=== PATIENT | male | born 1945 | race Caucasian/White ===

== ENCOUNTER 2021-09-10 12:29 | Inpatient (IN) | payer MEDICARE, OTHER ==
[~2021-09-10 12:29] MED LIST: Heparin 1,000 UNITS/ML VIAL ONE
[2021-09-10] MEDS ORDERED: Cefepime 2 GM VIAL ONE (12:50)
[2021-09-10] MEDS ORDERED: Morphine 4 MG/ML VIAL ONE ×2 (12:58→17:14)
[2021-09-10 13:08] LABS: #Eosinphils 0.1 thou/uL (0.0-0.7); #Lymphocytes 0.7 thou/uL (1.20-3.40); #Neutrophils 8.9 thou/uL (1.40-6.50); %Basophils 0.3 % (0.0-1.0); %Eosinophils 0.5 % (0.0-10.0); %Lymphocytes 6.2 % (21.0-51.0); %Monocytes 9.1 % (0.0-10.0); %Neutrophils 83.8 % (42.0-75.0); Hemoglobin 9.9 g/dL (14.0-18.0); Mean Corpuscular HGB CONC 32.5 g/dL (32.0-36.0); Mean Corpuscular Hemoglobin 26.7 pg (27.0-31.0); Mean Corpuscular Volume 82.3 fL (78.0-98.0); Mean Platelet Volume 7.2 fL (7.4-10.4); Platelet Count 276 thou/uL (130-400); RBC Distribution Width 13.4 % (11.5-14.5); Red Blood Cell (RBC) Count 3.71 mill/uL (4.70-6.10); White Blood Cell (WBC) Count 10.6 thou/uL (4.8-10.8)
[2021-09-10] MEDS ORDERED: Sodium Chloride 0.9% 1,000 ML IV SCH (13:15)
[2021-09-10 13:38] LABS: ALT (SGPT) 16 U/L (8-55); AST (SGOT) 16 U/L (5-34); Albumin 3.1 g/dL (3.4-4.8); Alkaline Phosphatase 45 U/L (40-110); Anion Gap 11 mmol/L (10-20); BUN (Urea Nitrogen) 14 mg/dL (8.4-25.7); Bilirubin, Total 0.5 mg/dL (0.2-1.2); Calc. Creatinine Clearance 0 mL/min (70-130); Calcium 9.2 mg/dL (7.8-10.44); Carbon Dioxide 26 mmol/L (23-31); Chloride 101 mmol/L (98-107); Globulin 3.9 g/dL (2.4-3.5); Glucose 129 mg/dL (83-110); Potassium 3.8 mmol/L (3.5-5.1); Sodium 134 mmol/L (136-145)
[2021-09-10 13:39] LABS: INR-International Normal Ratio 1.1; PTT 43.5 sec (22.9-36.1); Prothrombin Time 13.9 sec (12.0-14.7)
[2021-09-10] MEDS ORDERED: VANCOMYCIN 1.75 GM/350 ML BAG 1.75 GM in Premix Bag 1 BAG IVPB SCH (14:00)
[2021-09-10 15:36] LABS: Bilirubin Negative (Negative); Blood, Urine Negative (Negative); Clarity Clear (Clear); Glucose, Urine (Dipstick) Normal (Negative); Ketone, Urine Negative (Negative); Leukocyte Negative Leu/uL (Negative); Nitrite Negative (Negative); Protein, Urine (Dipstick) Negative (Neg-Trace); Specific Gravity, Urine 1.012 (1.002-1.036); Urobilinogen Normal mg/dL (Less than 2); pH, Urine 5.5 (5.0-9.0)
[2021-09-10] MEDS ORDERED: Ondansetron ODT 4 MG TAB PO PRN (17:49)
[2021-09-10] MEDS ORDERED: Acetaminophen 325 MG TAB PO PRN (17:49)
[2021-09-10] MEDS ORDERED: Ondansetron PF 4 MG/2 ML Vial IVP PRN (17:49)
[2021-09-10] MEDS ORDERED: Morphine 4 MG/ML VIAL SLOW IVP PRN (17:50)
[2021-09-10] MEDS ORDERED: hydrALAZINE 20 MG/ML VIAL SLOW IVP PRN (17:51)
[2021-09-10] MEDS ORDERED: Electrolyte Replacement Protocol 1 EACH FS SCH (18:00)
[2021-09-10] MEDS ORDERED: Vancomycin 1 GM in Premix Bag 1 BAG IVPB SCH (18:00)
[2021-09-10 19:22] VITALS: BMI 21.7
[2021-09-11] MEDS: Zolpidem Tartrate 5 MG TAB PO PRN ×2 (00:26→21:29)
[2021-09-11] MEDS: Cefepime 2 GM in Sodium Chloride 0.9% 100 ML IVPB SCH ×3 (00:26→23:15)
[2021-09-11] MEDS: Vancomycin HCl 750 MG in Sodium Chloride 0.9% 250 ML 250 ML IVPB SCH ×2 (03:00→16:26)
[2021-09-11] MEDS: FLUoxetine HCl 20 MG CAP PO SCH (09:13)
[2021-09-11 10:30] LABS: #Eosinphils 0.1 thou/uL (0.0-0.7); #Lymphocytes 0.7 thou/uL (1.20-3.40); #Monocytes 1.1 thou/uL (0.11-0.59); #Neutrophils 7.5 thou/uL (1.40-6.50); %Basophils 0.3 % (0.0-1.0); %Eosinophils 1.1 % (0.0-10.0); %Lymphocytes 7.7 % (21.0-51.0); %Monocytes 11.2 % (0.0-10.0); %Neutrophils 79.7 % (42.0-75.0); Hemoglobin 8.4 g/dL (14.0-18.0); Mean Corpuscular HGB CONC 31.5 g/dL (32.0-36.0); Mean Corpuscular Hemoglobin 26.3 pg (27.0-31.0); Mean Corpuscular Volume 83.5 fL (78.0-98.0); Mean Platelet Volume 6.8 fL (7.4-10.4); Platelet Count 277 thou/uL (130-400); RBC Distribution Width 13.3 % (11.5-14.5); Red Blood Cell (RBC) Count 3.18 mill/uL (4.70-6.10); White Blood Cell (WBC) Count 9.4 thou/uL (4.8-10.8)
[2021-09-11 10:49] LABS: Anion Gap 11 mmol/L (10-20); BUN (Urea Nitrogen) 9 mg/dL (8.4-25.7); Calc. Creatinine Clearance 89 mL/min (70-130); Calcium 8.5 mg/dL (7.8-10.44); Carbon Dioxide 22 mmol/L (23-31); Chloride 106 mmol/L (98-107); Glucose 102 mg/dL (83-110); Magnesium 1.7 mg/dL (1.6-2.6); Sodium 135 mmol/L (136-145)
[2021-09-11] MEDS: traMADol HCl 50 MG TAB PO PRN ×3 (11:47→23:15)
[2021-09-11] MEDS ORDERED: Magnesium 2 GM/50 ML 2 GM in Premix Bag 1 BAG IVPB SCH (13:15)
[2021-09-11 17:10] LABS: SARS-CoV-2 PCR by NAA Not Detected (NotDetected)
[2021-09-12 02:40] LABS: #Eosinphils 0.1 thou/uL (0.0-0.7); #Lymphocytes 0.9 thou/uL (1.20-3.40); #Neutrophils 6.9 thou/uL (1.40-6.50); %Basophils 0.3 % (0.0-1.0); %Eosinophils 1.3 % (0.0-10.0); %Lymphocytes 9.6 % (21.0-51.0); %Neutrophils 77.8 % (42.0-75.0); Hemoglobin 8.9 g/dL (14.0-18.0); Mean Corpuscular Hemoglobin 26.5 pg (27.0-31.0); Mean Corpuscular Volume 82.9 fL (78.0-98.0); Mean Platelet Volume 6.9 fL (7.4-10.4); Platelet Count 303 thou/uL (130-400); RBC Distribution Width 13.4 % (11.5-14.5); Red Blood Cell (RBC) Count 3.37 mill/uL (4.70-6.10); White Blood Cell (WBC) Count 8.8 thou/uL (4.8-10.8)
[2021-09-12 02:56] LABS: Vancomycin, Trough 9.6 ug/mL
[2021-09-12 03:06] LABS: Anion Gap 14 mmol/L (10-20); BUN (Urea Nitrogen) 9 mg/dL (8.4-25.7); Calc. Creatinine Clearance 85 mL/min (70-130); Calcium 8.4 mg/dL (7.8-10.44); Carbon Dioxide 21 mmol/L (23-31); Chloride 103 mmol/L (98-107); Glucose 111 mg/dL (83-110); Sodium 134 mmol/L (136-145)
[2021-09-12] MEDS: Vancomycin HCl 750 MG in Sodium Chloride 0.9% 250 ML 250 ML IVPB SCH (03:12)
[2021-09-12] MEDS: VANCOMYCIN 1.25 GM/250 ML BAG 1.25 GM in Premix Bag 1 BAG IVPB SCH ×2 (03:44→15:55)
[2021-09-12] MEDS: FLUoxetine HCl 20 MG CAP PO SCH (08:03)
[2021-09-12] MEDS: traMADol HCl 50 MG TAB PO PRN (09:48)
[2021-09-12] MEDS: cefTRIAXone\\ROCEPHIN 2 GM in Sodium Chloride 0.9% 100 ML IVPB SCH (12:00)
[2021-09-12] MEDS ORDERED: Morphine 4 MG/ML VIAL SLOW IVP PRN (13:17)
[2021-09-12] MEDS: Acetaminophen 500 MG TAB PO SCH ×2 (13:55→20:40)
[2021-09-12] MEDS: Lidocaine 5% Patch TD SCH (15:54)
[2021-09-12] MEDS: Ketorolac Tromethamine 30 MG/ML VIAL IVP PRN ×2 (16:24→20:40)
[2021-09-12] MEDS: Mirtazapine 15 MG TAB PO SCH (20:40)
[2021-09-13] MEDS: Acetaminophen 500 MG TAB PO SCH ×4 (01:43→20:31)
[2021-09-13] MEDS: Transdermal Patch Removal TOP SCH (02:15)
[2021-09-13] MEDS: VANCOMYCIN 1.25 GM/250 ML BAG 1.25 GM in Premix Bag 1 BAG IVPB SCH (04:35)
[2021-09-13 07:44] LABS: #Eosinphils 0.2 thou/uL (0.0-0.7); #Lymphocytes 0.7 thou/uL (1.20-3.40); #Monocytes 0.8 thou/uL (0.11-0.59); #Neutrophils 8.6 thou/uL (1.40-6.50); %Basophils 0.2 % (0.0-1.0); %Eosinophils 2.3 % (0.0-10.0); %Lymphocytes 6.9 % (21.0-51.0); %Monocytes 7.5 % (0.0-10.0); %Neutrophils 83.2 % (42.0-75.0); Hemoglobin 8.9 g/dL (14.0-18.0); Mean Corpuscular HGB CONC 32.3 g/dL (32.0-36.0); Mean Corpuscular Hemoglobin 26.9 pg (27.0-31.0); Mean Corpuscular Volume 83.1 fL (78.0-98.0); Platelet Count 308 thou/uL (130-400); RBC Distribution Width 13.5 % (11.5-14.5); Red Blood Cell (RBC) Count 3.32 mill/uL (4.70-6.10); White Blood Cell (WBC) Count 10.4 thou/uL (4.8-10.8)
[2021-09-13 08:08] LABS: Anion Gap 13 mmol/L (10-20); BUN (Urea Nitrogen) 13 mg/dL (8.4-25.7); Calc. Creatinine Clearance 84 mL/min (70-130); Calcium 8.8 mg/dL (7.8-10.44); Carbon Dioxide 23 mmol/L (23-31); Chloride 108 mmol/L (98-107); Glucose 100 mg/dL (83-110); Iron 27 ug/dL (65-175); Iron Binding Capacity, Total 171 mcg/dL (261-462); Potassium 3.7 mmol/L (3.5-5.1); Sodium 140 mmol/L (136-145)
[2021-09-13] MEDS: FLUoxetine HCl 20 MG CAP PO SCH (08:32)
[2021-09-13] MEDS: Ketorolac Tromethamine 30 MG/ML VIAL IVP PRN ×2 (11:10→20:32)
[2021-09-13] MEDS: cefTRIAXone\\ROCEPHIN 2 GM in Sodium Chloride 0.9% 100 ML IVPB SCH (11:10)
[2021-09-13] MEDS: Lidocaine 5% Patch TD SCH (15:37)
[2021-09-13] MEDS: Mirtazapine 15 MG TAB PO SCH (20:31)
[2021-09-14] MEDS: Acetaminophen 500 MG TAB PO SCH ×4 (02:17→21:12)
[2021-09-14] MEDS: Transdermal Patch Removal TOP SCH (02:42)
[2021-09-14] MEDS: Ferrous Sulfate 325 MG TAB PO SCH (09:00)
[2021-09-14] MEDS: FLUoxetine HCl 20 MG CAP PO SCH (09:02)
[2021-09-14] MEDS: Ketorolac Tromethamine 30 MG/ML VIAL IVP PRN ×2 (10:19→17:49)
[2021-09-14] MEDS: cefTRIAXone\\ROCEPHIN 2 GM in Sodium Chloride 0.9% 100 ML IVPB SCH (12:31)
[2021-09-14] MEDS: Lidocaine 5% Patch TD SCH (14:50)
[2021-09-14] MEDS: Mirtazapine 15 MG TAB PO SCH (21:12)
[2021-09-14] MEDS: Zolpidem Tartrate 5 MG TAB PO PRN (21:12)
[2021-09-15] MEDS: Acetaminophen 500 MG TAB PO SCH ×3 (01:51→14:05)
[2021-09-15] MEDS: Transdermal Patch Removal TOP SCH (01:55)
[2021-09-15] MEDS: Ketorolac Tromethamine 30 MG/ML VIAL IVP PRN ×2 (05:01→11:23)
[2021-09-15 08:33] LABS: ALT (SGPT) 21 U/L (8-55); AST (SGOT) 21 U/L (5-34); Albumin 2.7 g/dL (3.4-4.8); Alkaline Phosphatase 39 U/L (40-110); Anion Gap 10 mmol/L (10-20); BUN (Urea Nitrogen) 12 mg/dL (8.4-25.7); Bilirubin, Total 0.4 mg/dL (0.2-1.2); Calc. Creatinine Clearance 75 mL/min (70-130); Calcium 8.9 mg/dL (7.8-10.44); Carbon Dioxide 25 mmol/L (23-31); Chloride 110 mmol/L (98-107); Globulin 3.3 g/dL (2.4-3.5); Glucose 111 mg/dL (83-110); Potassium 4.1 mmol/L (3.5-5.1); Sodium 141 mmol/L (136-145)
[2021-09-15 08:38] LABS: #Eosinphils 0.2 thou/uL (0.0-0.7); #Lymphocytes 0.8 thou/uL (1.20-3.40); #Monocytes 0.8 thou/uL (0.11-0.59); #Neutrophils 8.2 thou/uL (1.40-6.50); %Basophils 0.3 % (0.0-1.0); %Eosinophils 1.7 % (0.0-10.0); %Lymphocytes 8.1 % (21.0-51.0); %Monocytes 7.6 % (0.0-10.0); %Neutrophils 82.3 % (42.0-75.0); Hemoglobin 8.7 g/dL (14.0-18.0); Mean Corpuscular HGB CONC 31.2 g/dL (32.0-36.0); Mean Corpuscular Hemoglobin 26.1 pg (27.0-31.0); Mean Corpuscular Volume 83.6 fL (78.0-98.0); Mean Platelet Volume 6.9 fL (7.4-10.4); Platelet Count 344 thou/uL (130-400); RBC Distribution Width 13.8 % (11.5-14.5); Red Blood Cell (RBC) Count 3.32 mill/uL (4.70-6.10); White Blood Cell (WBC) Count 9.9 thou/uL (4.8-10.8)
[2021-09-15] MEDS: Ferrous Sulfate 325 MG TAB PO SCH (08:40)
[2021-09-15] MEDS: FLUoxetine HCl 20 MG CAP PO SCH (08:40)
[2021-09-15 09:06] VITALS: BP 149/81; TEMP 97.7
[2021-09-15] MEDS: cefTRIAXone\\ROCEPHIN 2 GM in Sodium Chloride 0.9% 100 ML IVPB SCH (11:20)
[2021-09-15] MEDS: Lidocaine 5% Patch TD SCH (14:04)
== END 2021-09-15 17:39 | disposition home or self-care (01) | DRG 539 ==
LOC: ERS 12:29 → ERHOLD 14:53 → T4-A 18:52
PROVIDERS: ADMIT Family Medicine; ATTEND Family Medicine
PROC: 02HV33Z Insertion of Infusion Device into Superior Vena Cava, Percutaneous Approach (ICD-10-PCS; principal; 2021-09-11)
PROC: B5181ZA Fluoroscopy of Superior Vena Cava using Low Osmolar Contrast, Guidance (ICD-10-PCS; 2021-09-11)
PROC: B548ZZA Ultrasonography of Superior Vena Cava, Guidance (ICD-10-PCS; 2021-09-11)
DX: M46.26 Osteomyelitis of vertebra, lumbar region (principal); I33.0 Acute and subacute infective endocarditis; R78.81 Bacteremia; E87.1 Hypo-osmolality and hyponatremia; M46.56 Other infective spondylopathies, lumbar region; B95.4 Other streptococcus as the cause of diseases classified elsewhere; D50.9 Iron deficiency anemia, unspecified; F32.A Depression, unspecified; G47.00 Insomnia, unspecified; G89.29 Other chronic pain; E78.5 Hyperlipidemia, unspecified; M48.061 Spinal stenosis, lumbar region without neurogenic claudication; M46.36 Infection of intervertebral disc (pyogenic), lumbar region; I08.1 Rheumatic disorders of both mitral and tricuspid valves; Z88.8 Allergy status to other drugs, medicaments and biological substances; Z90.89 Acquired absence of other organs; Z79.899 Other long term (current) drug therapy
CPT/HCPCS: 36415; 36569; 80048; 80053; 80202; 81003; 82607; 82746; 83540; 83550; 83605; 83735; 85025; 85610; 85730; 86140; 87040; 87077; 87086; 87149; 87186; 93306; 94760; C1751; J0692; J0696; J1644; J1885; J2270; J3370; J3475; J3490; J7050; U0003; U0005

== ENCOUNTER 2021-09-30 11:15 | Day surgery (SDC) | payer MEDICARE ==
[2021-09-23 12:15] VITALS: BMI 20.3
[2021-09-30] MEDS ORDERED: PROPOFOL 200 MG/20 ML VIAL ONE (14:05)
== END 2021-09-30 15:05 | disposition home or self-care (01) ==
LOC: SDC 11:15
PROVIDERS: ATTEND Internal Medicine Cardiovascular Disease
PROC: B24BZZ4 Ultrasonography of Heart with Aorta, Transesophageal (ICD-10-PCS; principal; 2021-09-30)
DX: I08.1 Rheumatic disorders of both mitral and tricuspid valves (principal); I70.0 Atherosclerosis of aorta; E78.5 Hyperlipidemia, unspecified; E78.00 Pure hypercholesterolemia, unspecified; G89.29 Other chronic pain; M54.50 Low back pain, unspecified; Z87.891 Personal history of nicotine dependence; Z79.899 Other long term (current) drug therapy; Z88.5 Allergy status to narcotic agent
CPT/HCPCS: 93312

== ENCOUNTER 2022-05-01 12:17 | Outpatient (CLI) | payer OTHER | END 2022-05-01 12:18 | disposition home or self-care (01) | LOC: LABBT 12:17 | PROVIDERS: ATTEND Thoracic Surgery (Cardiothoracic Vascular Surgery) | DX: Z01.812 Encounter for preprocedural laboratory examination (principal); I38 Endocarditis, valve unspecified; Z20.822 Contact with and (suspected) exposure to COVID-19 | CPT/HCPCS: 71046; 80048; 85027; 87811; 93005; 93010 ==

== ENCOUNTER 2022-05-01 13:45 | Inpatient (IN) | payer OTHER ==
[2022-05-01 11:52] VITALS: BMI 20.9
[2022-05-01 13:58] LABS: Hemoglobin 12.5 g/dL (13.5-17.5); Mean Corpuscular HGB CONC 32.7 g/dL (32.0-36.0); Mean Corpuscular Hemoglobin 26.3 pg (27.0-33.0); Mean Corpuscular Volume 80.3 fl (81.2-95.1); Mean Platelet Volume 10.6 fl (7.4-10.4); Platelet Count 240 10x3/uL (150-450); RBC Distribution Width 14.6 % (11.5-14.5); Red Blood Cell (RBC) Count 4.76 10x6/uL (4.32-5.72)
[2022-05-01 14:21] LABS: Anion Gap 14 mmol/L (10-20); BUN (Urea Nitrogen) 16 mg/dL (8.4-25.7); Calc. Creatinine Clearance 0 mL/min (70-130); Calcium 9.8 mg/dL (7.8-10.44); Carbon Dioxide 26 mmol/L (23-31); Chloride 101 mmol/L (98-107); Estimated GFR 90; Glucose 129 mg/dL (83-110); Potassium 4.5 mmol/L (3.5-5.1); Sodium 136 mmol/L (136-145)
[2022-05-06] MEDS ORDERED: fentaNYL Citrate/PF 100 MCG/2 ML SYRINGE ONE ×2 (06:20)
[2022-05-06] MEDS ORDERED: Dexmedetomidine 200 MCG/2 ML VIAL ONE (06:21)
[2022-05-06] MEDS ORDERED: Insulin Regular 300 UNITS/3 ML VIAL ONE ×2 (06:21→09:13)
[2022-05-06] MEDS ORDERED: SUGAMMADEX SODIUM 200 MG/2 ML VIAL ONE (06:21)
[2022-05-06] MEDS ORDERED: niCARdipine 25 MG/10 ML VIAL ONE (06:21)
[2022-05-06] MEDS ORDERED: Aminocaproic Acid 5 GM/20 ML VIAL ONE ×2 (06:21→07:39)
[2022-05-06] MEDS ORDERED: Rocuronium Bromide 50 MG/5 ML VIAL ONE (06:21)
[2022-05-06] MEDS ORDERED: Midazolam HCl 5 mg/5 ml Vial ONE (06:21)
[2022-05-06] MEDS ORDERED: EPINEPHrine 1 MG/ML AMP ONE (06:30)
[2022-05-06] MEDS ORDERED: Bupivacaine PF 0.5% 30 ML VIAL ONE (06:30)
[2022-05-06] MEDS ORDERED: Dexamethasone 4 mg/ml Vial ONE (06:30)
[2022-05-06] MEDS ORDERED: Albumin 5% 500 ML ONE (06:30)
[2022-05-06] MEDS ORDERED: Bupivacaine HCl 0.5%/Epinephrine 1:200,000/PF 30 ml Vial ONE (06:31)
[2022-05-06] MEDS ORDERED: Vancomycin 1 GM/200 ML BAG ONE (06:39)
[2022-05-06] MEDS ORDERED: Heparin 10,000 UNITS/1 ML VIAL 30,000 UNITS in Sodium Chloride 0.9% 1,000 ML FS SCH (06:45)
[2022-05-06] MEDS ORDERED: Norepinephrine 4 MG/4 ML VIAL ONE (06:48)
[2022-05-06] MEDS ORDERED: CEFAZOLIN 2 GM VIAL ONE (07:21)
[2022-05-06] MEDS ORDERED: Sodium Chloride 0.9% 100 ML ONE (07:22)
[2022-05-06] MEDS ORDERED: Rocuronium Bromide 10 MG/ML (10ML VIAL) ONE (07:39)
[2022-05-06] MEDS ORDERED: Heparin 30,000 units/30 ml VIAL ONE (07:39)
[2022-05-06] MEDS ORDERED: Magnesium Sulfate 1 GM/2 ML VIAL ONE (07:39)
[2022-05-06] MEDS ORDERED: PROPOFOL 200 MG/20 ML VIAL ONE (07:39)
[2022-05-06] MEDS ORDERED: Calcium Chloride 1 GM/10 ML Abboject SYRINGE ONE (07:39)
[2022-05-06] MEDS ORDERED: Lidocaine 2% PF 100 mg/5 ml Syringe ONE (07:39)
[2022-05-06] MEDS ORDERED: Mannitol 12.5 GM/50 ML ONE (07:39)
[2022-05-06] MEDS ORDERED: Sodium Bicarb 50 MEQ/50 ML Abboject 8.4% SYRINGE ONE (07:39)
[2022-05-06] MEDS ORDERED: Lidocaine 1% MPF 2 ML VIAL ONE (07:39)
[2022-05-06] MEDS ORDERED: Protamine Sulfate 250 MG/25 ML VIAL ONE (07:39)
[2022-05-06] MEDS ORDERED: Thrombin 5000 UNITS/5 ML VIAL ONE (07:39)
[2022-05-06] MEDS ORDERED: PHENYLEPHRINE-NS 100 MCG/ML 10 ML SYRINGE ONE (09:13)
[2022-05-06] MEDS ORDERED: Albumin 5% 250 ML ONE ×2 (11:31→11:43)
[2022-05-06] MEDS ORDERED: Acetaminophen 325 MG TAB PO PRN (11:34)
[2022-05-06] MEDS ORDERED: Bisacodyl 10 MG SUPP PR PRN (11:34)
[2022-05-06] MEDS ORDERED: Guaifenesin DM 100-10/5 ML UDCUP PO PRN (11:34)
[2022-05-06] MEDS ORDERED: D5 1/2 NS w/20 mEq KCL 1,000 ML IV SCH (11:34)
[2022-05-06] MEDS ORDERED: Hetastarch 6% 500 ML 500 ML IVPB PRN (11:34)
[2022-05-06] MEDS ORDERED: NOREPINEPHRINE 8 MG/250 ML-D5W 250 ML IVPB PRN (11:34)
[2022-05-06] MEDS ORDERED: Morphine 2 MG/ML VIAL SLOW IVP PRN (11:34)
[2022-05-06] MEDS ORDERED: Mag-Al 1200 mg/1200 mg/30 ML UDCUP PO PRN (11:34)
[2022-05-06] MEDS ORDERED: Promethazine HCl 25 MG/ML VIAL IM PRN (11:34)
[2022-05-06] MEDS ORDERED: Fentanyl 100 MCG/2 ML VIAL SLOW IVP PRN (11:34)
[2022-05-06] MEDS ORDERED: Nitroglycerin 50 MG/250 ML BOT 250 ML IVPB PRN (11:34)
[2022-05-06] MEDS ORDERED: Magnesium 5 GM/10 ML Abboject SYRINGE ONE (11:44)
[2022-05-06 11:50] LABS: #Eosinphils 0.2 thou/uL (0.0-0.7); #Lymphocytes 0.7 thou/uL (1.20-3.40); #Monocytes 1.4 thou/uL (0.11-0.59); #Neutrophils 15.4 thou/uL (1.40-6.50); %Basophils 0.3 % (0.0-1.0); %Eosinophils 0.9 % (0.0-10.0); %Monocytes 7.7 % (0.0-10.0); %Neutrophils 87.1 % (42.0-75.0); Hemoglobin 10.5 g/dL (14.0-18.0); Mean Corpuscular HGB CONC 31.7 g/dL (32.0-36.0); Mean Corpuscular Hemoglobin 26.5 pg (27.0-31.0); Mean Corpuscular Volume 83.6 fL (78.0-98.0); Platelet Count 130 thou/uL (130-400); RBC Distribution Width 13.9 % (11.5-14.5); Red Blood Cell (RBC) Count 3.98 mill/uL (4.70-6.10); White Blood Cell (WBC) Count 17.7 thou/uL (4.8-10.8)
[2022-05-06 12:02] LABS: INR-International Normal Ratio 1.3; PTT 36.1 sec (22.9-36.1); Prothrombin Time 16.8 sec (12.0-14.7)
[2022-05-06 12:12] LABS: Anion Gap 11 mmol/L (10-20); BUN (Urea Nitrogen) 12 mg/dL (8.4-25.7); Calc. Creatinine Clearance 79 mL/min (70-130); Carbon Dioxide 21 mmol/L (23-31); Chloride 110 mmol/L (98-107); Estimated GFR 97; Glucose 149 mg/dL (83-110); Potassium 3.6 mmol/L (3.5-5.1); Sodium 138 mmol/L (136-145)
[2022-05-06 12:16] LABS: Actual Bicarbonate (HCO3a) 19.8 mEq/L (22-28); Base Excess (BEa) -4.1 mEq/L (-2.0 to +3.0); CO2 Tension 32.4 mmHg (35.0-45.0); Calcium, Ionized (arterial) 1.02 mmol/L (1.12-1.30); Carboxyhemoglobin (COHb) 0.3 gm% (0.0-3.0); Hemoglobin (Hb) 10.9 g/dL (14.0-18.0); pH, Arterial 7.41 (7.35-7.45)
[2022-05-06 12:22] LABS: Puncture Site Arterial Line
[2022-05-06] MEDS: Ketorolac Tromethamine 30 MG/ML VIAL IVP SCH ×3 (12:29→23:53)
[2022-05-06] MEDS ORDERED: Insulin Regular 300 UNITS/3 ML VIAL SC PRN (12:30)
[2022-05-06] MEDS ORDERED: HUMULIN R 100 UNITS in Sodium Chloride 0.9% 100 ML IVPB SCH (12:30)
[2022-05-06] MEDS ORDERED: Dextrose 5% in Water 1,000 ML IV PRN (12:30)
[2022-05-06] MEDS ORDERED: Dextrose 50% Abboject 50 ML SYRINGE SLOW IVP PRN (12:30)
[2022-05-06] MEDS: Potassium Chloride 20 MEQ/100 ML PREMIX BAG IVPB PRN ×2 (12:38→18:32)
[2022-05-06] MEDS: CEFAZOLIN 2 GM in Sodium Chloride 0.9% 100 ML IVPB SCH ×2 (15:03→23:54)
[2022-05-06 15:17] LABS: Actual Bicarbonate (HCO3a) 17.4 mEq/L (22-28); Base Excess (BEa) -6.1 mEq/L (-2.0 to +3.0); CO2 Tension 28.1 mmHg (35.0-45.0); Calcium, Ionized (arterial) 1.06 mmol/L (1.12-1.30); Carboxyhemoglobin (COHb) 0.3 gm% (0.0-3.0); O2 Tension (PaO2), arterial 108.4 mmHg (> 70.0); Potassium - ABG Lab 4.29 mmol/L (3.70-5.30); pH, Arterial 7.41 (7.35-7.45)
[2022-05-06 15:18] LABS: ALV-art Gradient 70.375 mmHg (0-20); Puncture Site Arterial Line
[2022-05-06 16:55] LABS: Hemoglobin 10.4 g/dL (14.0-18.0)
[2022-05-06] MEDS: traMADol HCl 50 MG TAB PO PRN (19:49)
[2022-05-06] MEDS: Atorvastatin Calcium 20 MG TAB PO SCH (19:50)
[2022-05-06] MEDS: Vancomycin 1 GM in Premix Bag 1 BAG IVPB SCH (19:57)
[2022-05-06] MEDS ORDERED: Famotidine/PF 20 mg/2ml Vial SLOW IVP SCH (21:00)
[2022-05-06] MEDS: Fentanyl 100 MCG/2 ML VIAL SLOW IVP PRN (22:06)
[2022-05-07] MEDS: Ondansetron PF 4 MG/2 ML Vial IVP PRN (04:55)
[2022-05-07 05:14] LABS: #Lymphocytes 0.5 thou/uL (1.20-3.40); #Monocytes 1.7 thou/uL (0.11-0.59); %Basophils 0.1 % (0.0-1.0); %Eosinophils 0.1 % (0.0-10.0); %Lymphocytes 3.8 % (21.0-51.0); %Monocytes 12.1 % (0.0-10.0); Hemoglobin 9.2 g/dL (14.0-18.0); Mean Corpuscular HGB CONC 32.6 g/dL (32.0-36.0); Mean Corpuscular Hemoglobin 27.6 pg (27.0-31.0); Mean Corpuscular Volume 84.7 fL (78.0-98.0); Mean Platelet Volume 8.7 fL (7.4-10.4); Platelet Count 136 thou/uL (130-400); RBC Distribution Width 13.7 % (11.5-14.5); Red Blood Cell (RBC) Count 3.35 mill/uL (4.70-6.10); White Blood Cell (WBC) Count 14.2 thou/uL (4.8-10.8)
[2022-05-07 05:35] LABS: Anion Gap 12 mmol/L (10-20); BUN (Urea Nitrogen) 15 mg/dL (8.4-25.7); Calc. Creatinine Clearance 74 mL/min (70-130); Calcium 7.6 mg/dL (7.8-10.44); Carbon Dioxide 20 mmol/L (23-31); Chloride 109 mmol/L (98-107); Estimated GFR 94; Glucose 127 mg/dL (83-110); Potassium 4.5 mmol/L (3.5-5.1); Sodium 136 mmol/L (136-145)
[2022-05-07] MEDS: Ketorolac Tromethamine 30 MG/ML VIAL IVP SCH ×3 (05:40→17:43)
[2022-05-07] MEDS ORDERED: Guaifenesin DM 100-10/5 ML UDCUP PO PRN (06:41)
[2022-05-07] MEDS ORDERED: Mag-Al 1200 mg/1200 mg/30 ML UDCUP PO PRN (06:41)
[2022-05-07] MEDS ORDERED: diphenhydrAMINE 25 MG CAP PO PRN (06:41)
[2022-05-07] MEDS ORDERED: Nitroglycerin 0.4 MG TAB (25 Tab Bottle) SL PRN (06:41)
[2022-05-07] MEDS ORDERED: Bisacodyl 5 MG TAB PO PRN (06:41)
[2022-05-07] MEDS ORDERED: Mineral Oil ENEMA PR PRN (06:41)
[2022-05-07] MEDS ORDERED: Bisacodyl 10 MG SUPP PR PRN (06:41)
[2022-05-07] MEDS: FLUoxetine HCl 20 MG CAP PO SCH (07:24)
[2022-05-07] MEDS: Aspirin Chewable 81 MG TAB PO SCH (07:24)
[2022-05-07] MEDS: CEFAZOLIN 2 GM in Sodium Chloride 0.9% 100 ML IVPB SCH (07:27)
[2022-05-07] MEDS: Magnesium 2 GM/50 ML(in water) 1 GM in Premix Bag 1 BAG IVPB SCH (07:28)
[2022-05-07] MEDS: Vancomycin 1 GM in Premix Bag 1 BAG IVPB SCH (07:28)
[2022-05-07] MEDS: BEER 1 CAN PO SCH ×2 (11:32→20:56)
[2022-05-07] MEDS ORDERED: Insulin Glargine 30 UNITS/0.3 ML VIAL SC PRN (12:16)
[2022-05-07] MEDS: traMADol HCl 50 MG TAB PO PRN (12:59)
[2022-05-07] MEDS: Carvedilol 3.125 MG TAB PO SCH (17:43)
[2022-05-07] MEDS: Fentanyl 100 MCG/2 ML VIAL SLOW IVP PRN (17:53)
[2022-05-07] MEDS: Atorvastatin Calcium 20 MG TAB PO SCH (20:56)
[2022-05-08] MEDS: Ketorolac Tromethamine 30 MG/ML VIAL IVP SCH ×5 (00:01→23:42)
[2022-05-08] MEDS: FLUoxetine HCl 20 MG CAP PO SCH (08:49)
[2022-05-08] MEDS: Aspirin Chewable 81 MG TAB PO SCH (08:50)
[2022-05-08] MEDS: Carvedilol 3.125 MG TAB PO SCH ×2 (08:50→16:11)
[2022-05-08] MEDS: Magnesium 2 GM/50 ML(in water) 1 GM in Premix Bag 1 BAG IVPB SCH (08:50)
[2022-05-08] MEDS: BEER 1 CAN PO SCH (11:15)
[2022-05-08] MEDS: Ondansetron PF 4 MG/2 ML Vial IVP PRN (17:26)
[2022-05-08] MEDS: Zolpidem Tartrate 5 MG TAB PO PRN (20:43)
[2022-05-08] MEDS: Atorvastatin Calcium 20 MG TAB PO SCH (20:43)
[2022-05-08] MEDS: Bisacodyl 5 MG TAB PO PRN (20:44)
[2022-05-08] MEDS: traMADol HCl 50 MG TAB PO PRN (20:55)
[2022-05-09] MEDS: Ketorolac Tromethamine 30 MG/ML VIAL IVP SCH ×2 (05:25→12:22)
[2022-05-09] MEDS: Bisacodyl 5 MG TAB PO PRN (09:50)
[2022-05-09] MEDS: FLUoxetine HCl 20 MG CAP PO SCH (09:51)
[2022-05-09] MEDS: traMADol HCl 50 MG TAB PO PRN (09:52)
[2022-05-09] MEDS: Carvedilol 3.125 MG TAB PO SCH ×2 (09:52→17:40)
[2022-05-09] MEDS: Aspirin Chewable 81 MG TAB PO SCH (09:53)
[2022-05-09] MEDS ORDERED: Milk Of Magnesia 30 ML UDCUP PO PRN (12:06)
[2022-05-09] MEDS: Zolpidem Tartrate 5 MG TAB PO PRN (20:16)
[2022-05-09] MEDS: Atorvastatin Calcium 20 MG TAB PO SCH (20:16)
[2022-05-10] MEDS: traMADol HCl 50 MG TAB PO PRN ×2 (04:43→18:37)
[2022-05-10] MEDS ORDERED: Magnesium Citrate 300 ML BOT PO SCH (09:15)
[2022-05-10] MEDS: Carvedilol 3.125 MG TAB PO SCH ×2 (09:36→18:33)
[2022-05-10] MEDS: Aspirin Chewable 81 MG TAB PO SCH (09:36)
[2022-05-10] MEDS: FLUoxetine HCl 20 MG CAP PO SCH (09:36)
[2022-05-10] MEDS: Zolpidem Tartrate 5 MG TAB PO PRN (20:58)
[2022-05-10] MEDS: Atorvastatin Calcium 20 MG TAB PO SCH (20:59)
[2022-05-11] MEDS: traMADol HCl 50 MG TAB PO PRN (06:04)
[2022-05-11] MEDS: Aspirin Chewable 81 MG TAB PO SCH (08:10)
[2022-05-11] MEDS: Carvedilol 3.125 MG TAB PO SCH (08:10)
[2022-05-11] MEDS: FLUoxetine HCl 20 MG CAP PO SCH (08:10)
[2022-05-11 13:21] VITALS: BP 168/84; TEMP 98.2
== END 2022-05-11 13:13 | disposition home or self-care (01) | DRG 221 ==
LOC: SURG A 05-06 05:50 → CCU 05-06 10:24 → EDSTATUS 05-06 13:45 → 2NO 05-07 20:31
PROVIDERS: ADMIT Thoracic Surgery (Cardiothoracic Vascular Surgery); ATTEND Thoracic Surgery (Cardiothoracic Vascular Surgery)
PROC: 02RG08Z Replacement of Mitral Valve with Zooplastic Tissue, Open Approach (ICD-10-PCS; principal; 2022-05-06)
PROC: 5A1221Z Performance of Cardiac Output, Continuous (ICD-10-PCS; 2022-05-06)
PROC: B24BZZ4 Ultrasonography of Heart with Aorta, Transesophageal (ICD-10-PCS; 2022-05-06)
DX: I05.9 Rheumatic mitral valve disease, unspecified (principal); E78.2 Mixed hyperlipidemia; I25.10 Atherosclerotic heart disease of native coronary artery without angina pectoris; M54.9 Dorsalgia, unspecified; F41.9 Anxiety disorder, unspecified; G89.29 Other chronic pain; K59.00 Constipation, unspecified; Z96.1 Presence of intraocular lens; Z98.890 Other specified postprocedural states; Z90.89 Acquired absence of other organs; Z79.52 Long term (current) use of systemic steroids; Z88.8 Allergy status to other drugs, medicaments and biological substances; Z83.3 Family history of diabetes mellitus; Z79.899 Other long term (current) drug therapy; Z98.42 Cataract extraction status, left eye; Z98.41 Cataract extraction status, right eye
CPT/HCPCS: 36416; 36430; 71045; 80048; 82805; 85025; 85027; 85610; 85730; 86850; 86900; 86901; 87070; 87205; 93005; 93010; 93798; 94002; 94150; 97139; C1889; J0171; J0690; J1100; J1642; J1644; J1815; J1885; J2001; J2150; J2250; J2405; J2704; J2720; J3010; J3370; J3475; J3480; J3490; P9045; S0017; S0020; S0028

== ENCOUNTER 2025-06-29 12:02 | Day surgery (SDC) | payer OTHER ==
[2025-06-27 14:26] VITALS: BMI 21.1
[2025-06-29] MEDS ORDERED: Etomidate 40 MG (20 mL) VIAL ONE (12:23)
[2025-06-29] MEDS ORDERED: Lidocaine 1% PF 5 ML VIAL ONE (12:27)
[2025-06-29] MEDS ORDERED: PHENYLEPHRINE-NS 100 MCG/ML 10 ML SYRINGE ONE (12:27)
[2025-06-29] MEDS ORDERED: Glycopyrrolate 0.2 MG/ML 5 ML SYRINGE ONE (12:27)
[2025-06-29] MEDS ORDERED: PROPOFOL 200 MG/20 ML VIAL ONE (12:27)
== END 2025-06-29 13:55 | disposition home or self-care (01) ==
LOC: SDC 12:02
PROVIDERS: ATTEND Internal Medicine Cardiovascular Disease
PROC: B24BZZ4 Ultrasonography of Heart with Aorta, Transesophageal (ICD-10-PCS; principal; 2025-06-29)
DX: I34.0 Nonrheumatic mitral (valve) insufficiency (principal); I25.10 Atherosclerotic heart disease of native coronary artery without angina pectoris; I42.9 Cardiomyopathy, unspecified; E78.00 Pure hypercholesterolemia, unspecified; I51.89 Other ill-defined heart diseases; I44.0 Atrioventricular block, first degree; F32.A Depression, unspecified; F41.9 Anxiety disorder, unspecified; I10 Essential (primary) hypertension; Z88.8 Allergy status to other drugs, medicaments and biological substances; Z87.891 Personal history of nicotine dependence; Z79.82 Long term (current) use of aspirin; Z79.899 Other long term (current) drug therapy
CPT/HCPCS: 93312; J2704